=== PATIENT | male | born 1940 | race Caucasian/White ===

== ENCOUNTER 2019-03-08 12:54 | Emergency (ER) | payer MEDICARE, BC ==
[~2019-03-08] VITALS: Ht 175.3 cm; Wt 95.3 kg
[~2019-03-08 12:54] MED LIST: AMOXICILLIN 50500 MG PO; APAP500 PO; AUGMENTIN 875875 MG PO; CARVEDILOL12.5 MG PO; COUMADIN 2.5MG2.5 M1 PO; DIGOXIN125 MCG PO; DIPHENHIST50 MG PO; FISH OIL 1,001000 M2 PO; JALYN 0.5-0.41 EACH PO; LASIX 40 MG TAB40 M2 PO; LEVAQUIN 500 M500 M2 PO; LISINOPRIL5 MG PO; MACROBID 100 M100 M1 PO; MAGNESIUM250 MG PO; METFORMIN HCL500 MG PO; NEURONTIN 300300 M1 PO; NIACIN1000 MG PO; POTASSIUM20 PO; PRILOSEC 20 MG20 MG PO; ZOCOR20 MG PO
[2019-03-08 13:38] LABS: URINE CLARITY SL CLOUDY; URINE COLOR ORANGE
[2019-03-08 13:39] LABS: URINE GLUCOSE-RANDOM ND (Negative); URINE PROTEIN ND (Negative)
[2019-03-08 13:40] LABS: URINE BILIRUBIN ND (Negative); URINE BLOOD ND (Negative); URINE KETONES ND (Negative); URINE LEUKOCYTES-REFLEX ND (Negative); URINE NITRITE-REFLEX ND (Negative); URINE UROBILINOGEN ND E.U./dl (0.2-1.0)
[2019-03-08 13:43] LABS: SQUAMOUS 0-3 Few /LPF (0-3); URINE RBC 0-2 Rare /HPF (0-2); URINE WBC-REFLEX 0-5 Rare /HPF (0-5)
[2019-03-08 13:44] LABS: CASTS None Seen /LPF (None Seen); CRYSTALS None Seen /LPF (None Seen); MUCUS 0-3 Light strn/LPF (None Seen)
[2019-03-08 14:00] LABS: ABSOLUTE LYMPHOCYTES 0.7 thou/uL (0.8-5.3); ABSOLUTE MONOCYTES 0.5 thou/uL (0.0-1.2); ABSOLUTE NEUTROPHILS 4.3 thou/uL (1.6-8.1); BASOPHILS 0.6 %; EOSINOPHILS 0.7 %; HEMATOCRIT 38.9 % (42.0-52.0); HEMOGLOBIN 12.7 gm/dL (14.0-18.0); LYMPHOCYTES 11.9 %; MCH 26.7 pg (26.0-34.0); MCHC 32.6 g/dL (28.0-37.0); MCV 81.9 fL (80.0-100.0); MONOCYTES 9.7 %; MPV 7.7 fl. (7.2-11.1); NUCLEATED RBCS 0 /100WBC; PLATELET COUNT* 146 thou/uL (150-400); POLYS 77.1 %; RBC 4.76 mil/uL (4.50-6.00); WBC 5.6 thou/uL (4.0-11.0)
[2019-03-08 14:05] LABS: CREATININE 1.1 mg/dL (0.6-1.3); INR 2.7; POTASSIUM 4.6 mmol/L (3.5-5.1)
[2019-03-08 14:10] LABS: ALBUMIN 4.2 g/dL (3.4-5.0); TOTAL BILIRUBIN 0.7 mg/dL (<0.1-1.0); TOTAL PROTEIN 7.5 g/dL (6.4-8.2)
[2019-03-08] MEDS ORDERED: NORCO 5-325 TA1 EACH PO (15:15)
[2019-03-08 15:27] VITALS: BP 139/55
== END 2019-03-08 15:27 | disposition home or self-care (01) ==
LOC: M.ERS 12:54
PROVIDERS: Nurse Practitioner Family
DX: N30.10 Interstitial cystitis (chronic) without hematuria (principal); E11.9 Type 2 diabetes mellitus without complications; Z85.828 Personal history of other malignant neoplasm of skin; E78.00 Pure hypercholesterolemia, unspecified; I10 Essential (primary) hypertension; N40.0 Benign prostatic hyperplasia without lower urinary tract symptoms; Z90.49 Acquired absence of other specified parts of digestive tract; F17.210 Nicotine dependence, cigarettes, uncomplicated

== ENCOUNTER → 2020-06-30 | Outpatient (CLI) | payer MEDICARE, BC ==
[~2020-06-30] MED LIST changes: +NORCO 5-325 TA1 EACH PO
--- NOTE | 2020-06-30 14:54 | 2DMMODE ---
[place] [address] 2 D/M-MODE ECHOCARDIOGRAM Name: DELICIA LOPEZ Room: [facility]#: [id number] Admission: 06/30/20 Attend Phys: Oral Andres, Discharge: Date of : 36 Date of Service: 06/30/20 1454 Report #: [id number] THIS REPORT FOR: cc: Yola Lopez Anna S. DO Liston, Michael J. MD [facility] ~ APPROVED REPORT Study performed: 06/30/2020 12:58:25 EXAM: Comprehensive 2D, Doppler, and color-flow Echocardiogram Patient Location: Out-Patient BSA: 2.02 HR: 91 bpm BP: 120/70 mmHg Other Information Study Quality: Good Indications CAD Aortic valve replacement 2D Dimensions IVSd: 10.50 (7-11mm) LVOT Diam: 21.42 (18-24mm) LVDd: 49.77 mm PWd: 11.21 (7-11mm) Ascending Ao: 31.46 (22-36mm) LVDs: 39.86 (25-40mm) Aortic Root: 34.75 mm Volumes Left Atrial Volume (Systole) LA ESV Index: 39.90 mL/m2 Aortic Valve AoV Peak Shun.: 1.57 m/s AO Peak Gr.: 9.87 mmHg LVOT Max P.44 mmHg AO Mean Gr.: 5.77 mmHg LVOT Mean P.70 mmHg LVOT Max V: 0.60 m/s AO V2 VTI: 27.19 cm LVOT Mean V: 0.39 m/s FLORA (VTI): 1.66 cm2 LVOT V1 VTI: 12.50 [place] [address] 2 D/M-MODE ECHOCARDIOGRAM Name: DELICIA LOPEZ Room: [facility]#: [id number] Admission: 06/30/20 Attend Phys: Oral Andres, Discharge: Date of : 36 Date of Service: 06/30/20 1454 Report #: [id number] MV Decel. Time: 140.89 ms MV E Max Shun.: 0.86 m/s MV PHT: 40.86 ms MVA (PHT): 5.38 cm2 TDI E/Lateral E': 7.82 E/Medial E': 10.75 Medial E' Hsun.: 0.08 m/s Lateral E' Shun.: 0.11 m/s Pulmonary Valve PV Peak Shun.: 0.70 m/s PV Peak Gr.: 1.99 mmHg Tricuspid Valve RAP Estimate: 5.00 mmHg TR Peak Gr.: 25.69 mmHg RVSP: 30.69 mmHg PA Pressure: 30.69 mmHg Left Ventricle The left ventricle is normal size. There is mild inferior wall hypokinesis. There is normal left ventricular wall thickness. Left ventricular systolic function is mildly decreased. LVEF is 45-50%. This study is not technically sufficient to allow evaluation of the LV diastolic function due to atrial fibrillation. Right Ventricle The right ventricle is normal size. The right ventricular systolic function is normal. Atria Left atrium is moderately dilated. Right atrium is mildly dilated. Aortic Valve Mechanical aortic valve is present. Mild aortic regurgitation. There is no aortic valvular stenosis. Mitral Valve The mitral valve is normal in structure. Mild mitral regurgitation. No evidence of mitral valve stenosis. Tricuspid Valve The tricuspid valve is normal in structure. Mild tricuspid regurgitation[place] [address] 2 D/M-MODE ECHOCARDIOGRAM Name: DELICIA LOPEZ Room: [facility]#: [id number] Admission: 06/30/20 Attend Phys: Oral Andres, Discharge: Date of : 36 Date of Service: 06/30/20 1454 Report #: [id number] The pulmonary valve is normal in structure. Mild pulmonic regurgitation. Great Vessels The aortic root is normal in size. IVC is normal in size and collapses >50% with inspiration. Pericardium There is no pericardial effusion. <Conclusion> The left ventricle is normal size. There is normal left ventricular wall thickness. Left ventricular systolic function is mildly decreased. LVEF is 45-50%. There is mild inferior wall hypokinesis. Left atrium is moderately dilated. Right atrium is mildly dilated. Mechanical aortic valve is present. Mild aortic regurgitation. There is no aortic valvular stenosis. Mild mitral regurgitation. Mild tricuspid regurgitation. IVC is normal in size and collapses >50% with inspiration. <ELECTRONICALLY SIGNED> By: Oral Andres MD, FACC 06/30/20 1454 1454 1454 Oral Andres MD, FACC /INF
== END ==
LOC: M.CRD 06-08 07:48 → M.NUC 13:00 → M.CRD 13:00
PROVIDERS: ATTEND Internal Medicine Cardiovascular Disease
DX: I08.8 Other rheumatic multiple valve diseases (principal); I25.10 Atherosclerotic heart disease of native coronary artery without angina pectoris

== ENCOUNTER → 2020-07-15 | Outpatient (CLI) | payer MEDICARE, BC ==
[2020-07-15 09:21] LABS: CALCIUM 9.1 mg/dL (8.5-10.1); CREATININE 1.4 mg/dL (0.6-1.3); POTASSIUM 4.7 mmol/L (3.5-5.1)
== END ==
LOC: M.LAB 08:38
PROVIDERS: ATTEND Registered Nurse
DX: I25.5 Ischemic cardiomyopathy (principal)

== ENCOUNTER → 2020-11-13 | Outpatient (CLI) | payer MEDICARE, BC ==
[2020-11-13 13:59] LABS: CALCIUM 9.2 mg/dL (8.5-10.1); CREATININE 1.6 mg/dL (0.6-1.3); POTASSIUM 4.7 mmol/L (3.5-5.1)
== END ==
LOC: M.LAB 13:10
PROVIDERS: ATTEND Internal Medicine Cardiovascular Disease
DX: I48.21 Permanent atrial fibrillation (principal); I25.5 Ischemic cardiomyopathy; I50.22 Chronic systolic (congestive) heart failure; I25.10 Atherosclerotic heart disease of native coronary artery without angina pectoris

== ENCOUNTER 2020-12-24 14:10 | Inpatient (IN) | payer MEDICARE, BC ==
[~2020-12-24] VITALS: Ht 182.9 cm; Wt 85.6 kg
[2020-12-24] VITALS (14 sets, daily range): BP systolic 99–147; BP diastolic 39–87
--- NOTE | ~2020-12-24 | PROC ---
[address] [address] PROCEDURE REPORT Name: DELICIA LOPEZ Room: [address] ADM IN M.R.#: [id number] Admission: 12/24/20 Attend Phys: Abdiel Feliciano, Discharge: Date of : 38 Report #: [id number] THIS REPORT FOR: cc: Yola Lopez Anna S. DO ~ [facility],Medical Records Staff For GI report, please see the Provation report in Perceptive 7 content. By: [id number] Records Staff [facility] /JAYNA
[2020-12-24 14:36] LABS: URINE BILIRUBIN NEGATIVE (Negative); URINE BLOOD 2+ (Negative); URINE CLARITY CLEAR; URINE COLOR YELLOW; URINE GLUCOSE-RANDOM NEGATIVE (Negative); URINE KETONES NEGATIVE (Negative); URINE LEUKOCYTES-REFLEX 1+ (Negative); URINE NITRITE-REFLEX NEGATIVE (Negative); URINE PROTEIN NEGATIVE (Negative); URINE SPECIFIC GRAVITY 1.015 (1.005-1.030); URINE UROBILINOGEN 0.2 E.U./dl (0.2-1.0)
[2020-12-24 14:40] LABS: SQUAMOUS >10 Many /LPF (0-3)
[2020-12-24 14:41] LABS: CASTS None Seen /LPF (None Seen); CRYSTALS None Seen /LPF (None Seen); MUCUS None Seen strn/LPF (None Seen); URINE RBC 3-10 Few /HPF (0-2); URINE WBC-REFLEX 6-15 Few /HPF (0-5)
[2020-12-24 15:06] LABS: HEMATOCRIT 39.8 % (42.0-52.0); HEMOGLOBIN 13.1 gm/dL (14.0-18.0); MCH 32.1 pg (26.0-34.0); MCHC 32.8 g/dL (28.0-37.0); MCV 97.9 fL (80.0-100.0); MPV 7.9 fl. (7.2-11.1); NUCLEATED RBCS 0 /100WBC; PLATELET COUNT* 176 thou/uL (150-400); RBC 4.06 mil/uL (4.50-6.00); RDW-CV 15.4 % (10.5-14.5); WBC 17.1 thou/uL (4.0-11.0)
[2020-12-24 15:15] LABS: CALCIUM 9.6 mg/dL (8.5-10.1); CREATININE 1.2 mg/dL (0.6-1.3)
[2020-12-24 15:26] LABS: ALBUMIN 3.4 g/dL (3.4-5.0); TOTAL BILIRUBIN 4.9 mg/dL (<0.1-1.0); TOTAL PROTEIN 7.9 g/dL (6.4-8.2)
[2020-12-24 15:31] LABS: ABSOLUTE LYMPHOCYTES 0.3 thou/uL (0.8-5.3); ABSOLUTE MONOCYTES 0.2 thou/uL (0.0-1.2); ABSOLUTE NEUTROPHILS 16.6 thou/uL (1.6-8.1); HYPOCHROMASIA 1+; PLATELET ESTIMATE ADEQUATE
--- NOTE | 2020-12-24 15:35 | EKG ---
[place] [address] ELECTROCARDIOGRAM REPORT Name: DELICIA LOPEZ Room: 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[place] [facility] [place] [facility] [place] 1940 Requested By: Guero Simpson Order Number: [id number] MD: Ab Livingston Measurements Intervals [place] Rate: 132 P: 35 MA: 189 QRS: -83 QRSD: 166 T: 78 QT: 352 QTc: 522 Interpretive Statements atrial fibrillation artifact noted previous inferior infarction Multiform ventricular premature complexes Right bundle branch block Compared to ECG 07/03/2016 04:04:20 Ventricular premature complex(es) now present Right bundle-branch block now present Electronically Signed On 12-24-2020 15:35:37 CDT by Ab Livingston [email or web address] <ELECTRONICALLY SIGNED> By: Ab Livingston MD, [facility] 12/24/20 1535 1415 1415 Ab Livingston MD, [facility] /EPI
[2020-12-24 17:09] LABS: APTT 40.4 Seconds (25.0-31.3); INR 3.2; PROTIME 31.8 Seconds (9.20-11.50)
[2020-12-24 17:22] LABS: MAGNESIUM 2.1 mg/dL (1.8-2.4); PHOSPHORUS* 3.2 mg/dL (2.5-4.9)
[2020-12-25] VITALS (25 sets, daily range): BP systolic 90–120; BP diastolic 42–65
[2020-12-25 04:18] LABS: HEMATOCRIT 33.1 % (42.0-52.0); MCH 31.8 pg (26.0-34.0); MCHC 32.7 g/dL (28.0-37.0); MCV 97.3 fL (80.0-100.0); RBC 3.4 mil/uL (4.50-6.00); RDW-CV 15.3 % (10.5-14.5)
[2020-12-25 04:32] LABS: ALBUMIN 2.5 g/dL (3.4-5.0); CALCIUM 7.9 mg/dL (8.5-10.1); CREATININE 1.4 mg/dL (0.6-1.3); MAGNESIUM 1.7 mg/dL (1.8-2.4); POTASSIUM 3.7 mmol/L (3.5-5.1); TOTAL BILIRUBIN 4.7 mg/dL (<0.1-1.0)
[2020-12-25 04:35] LABS: HEMOGLOBIN 10.8 gm/dL (14.0-18.0)
[2020-12-25 07:47] LABS: PROTIME 46.5 Seconds (9.20-11.50)
[2020-12-25 08:11] LABS: INR 4.8
--- NOTE | 2020-12-25 16:39 | CON ---
[address] [address] CONSULTATION Name: JOHNDELICIA Charlie Room: [address] IN M.R.#: [id number] Admission: 12/24/20 Attend Phys: Abdiel Feliciano, Discharge: Date of : 38 Report #: [id number] THIS REPORT FOR: cc: Yola Lopez Anna S. DO ~ Irene Becerra MD DATE OF SERVICE: 12/25/2020 PRIMARY CARE PHYSICIAN: Yola Lopez DO Please note at the time of this dictation, the patient was seen and physically examined by myself. REASON FOR CONSULTATION: Abdominal pain and transaminitis. HISTORY OF PRESENT ILLNESS: This is an 80-year-old male who presented to the Emergency Room with abrupt onset of abdominal pain. The patient has had a previous cholecystectomy many years ago and he states it was related to stones. On his CT scan, it showed that he had a 5 mm distal hypodensity lesion in the CBD and head of the pancreas, likely choledocholithiasis. On admission, he had a temperature of 101.9, his heart rate was in the 130s, atrial fib, which is longstanding with him as well. He states he had upper and lower scopes many years ago. He cannot recall where those were done before. He has no issues with any nausea or vomiting at the present time or any issues with acid reflux. He states his bowels move daily, soft and formed with no evidence of any bright red blood or any black stools noted. ALLERGIES: No known drug allergies. MEDICATIONS: From home, he is on warfarin, acetaminophen, Lasix, carvedilol, potassium, magnesium, lisinopril, digoxin, metformin, fish oil, omeprazole 20 mg, Melissa, simvastatin, niacin, gabapentin, and Benadryl. PAST MEDICAL HISTORY: History of TIA back in 2006, diabetic, skin cancer of face in 2012. He has had UTIs, hypercholesterolemia, hypertension. He has issues with some chronic constipation, BPH. PAST SURGICAL HISTORY: Aortic valve replacement back in 1994, gallbladder removed in the . He has had some broken ribs. He has had a history of a heart catheterization and stress test. Recently, he broke his left wrist and is currently in an immobilizer for this at the present time. FAMILY HISTORY: [place] [address] CONSULTATION Name: DELICIA LOPEZ Room: [address]#: [id number] Admission: 12/24/20 Attend Phys: Abdiel Feliciano, Discharge: Date of : 38 Report #: [id number] SOCIAL HISTORY: He does smoke a small cigar once in a while. Otherwise, denies any illegal drug use or alcohol use. REVIEW OF SYSTEMS: Twelve-point review of systems is essentially negative except what is mentioned in the HPI. PHYSICAL EXAMINATION: VITAL SIGNS: Temperature 36.7, pulse 118, respirations 19, blood pressure 102/45. HEART: Irregular rate and rhythm. He is in the 120s-130s. ABDOMEN: Soft. Positive bowel sounds in all 4 quadrants with some tenderness noted in the epigastric to right upper quadrant pain. LUNGS: Diminished, but clear. LABORATORY DATA: Hemoglobin was 13.1 when he presented to the hospital, he is 10.8. White count was 17.1, he is now 19. Platelets 176 and he is down to 145. Troponin was elevated at 1. Lactic acid was 3.5. PT/INR on admission was 31.8 and INR was 3.2. He is now 46.5 and INR of 4.8, GFR is 49 with a BUN of 26 and creatinine of 1.4. Total bilirubin on admission was 4.9, he is down to 4.7, alkaline phosphatase 344, down to 220, ALT was 675, he is down to 432 and AST 764 and down to 346. His BNP was 5541. CT scan again showed a 5 mm distal CBD hypodensity lesion in the head of the pancreas, likely choledocholithiasis. IMPRESSION: 1. Abdominal pain, which has improved slightly. 2. Transaminitis. 3. Abnormal CT. 4. Anemia. 5. Cholangitis. 6. Hypercoagulopathy. 7. Anticoagulant therapy, warfarin for his AVR and atrial fibrillation. PLAN: 1. MRCP to further evaluate his CBD and head of the pancreas. 2. Levaquin 500 mg IV piggyback daily. 3. Labs; CBC, CMP, PT, INR and a CA-19-9 for tomorrow. 3. Hold all anticoagulants. 4. The patient will need an ERCP once his INR is below 1.5, he was given vitamin K already this a.m. 5. Further recommendations to be made after Dr. Becerra sees the patient later today. [address] [address] CONSULTATION Name: DELICIA LOPEZ Room: 004-P ADM IN M.R.#: [id number] Admission: 12/24/20 Attend Phys: Abdiel Feliciano, Discharge: Date of : 38 Report #: [id number] Thank you for allowing us to participate in this patient's care. Please do not hesitate to call with any questions in regard to this consult. <ELECTRONICALLY SIGNED> By: Irene Becerra MD 12/25/20 1639 0947 [id number] Becerra MD /nt
[2020-12-26] VITALS (19 sets, daily range): BP systolic 100–132; BP diastolic 47–76
[2020-12-26 04:48] LABS: ABSOLUTE LYMPHOCYTES 0.2 thou/uL (0.8-5.3); ABSOLUTE MONOCYTES 0.5 thou/uL (0.0-1.2); ABSOLUTE NEUTROPHILS 11.6 thou/uL (1.6-8.1); BASOPHILS 0.2 %; EOSINOPHILS 0.1 %; HEMATOCRIT 31.2 % (42.0-52.0); HEMOGLOBIN 10.4 gm/dL (14.0-18.0); LYMPHOCYTES 1.9 %; MCH 31.9 pg (26.0-34.0); MCHC 33.3 g/dL (28.0-37.0); MCV 95.9 fL (80.0-100.0); MONOCYTES 3.7 %; NUCLEATED RBCS 0 /100WBC; PLATELET COUNT* 137 thou/uL (150-400); POLYS 94.1 %; RBC 3.26 mil/uL (4.50-6.00); RDW-CV 15.4 % (10.5-14.5); WBC 12.3 thou/uL (4.0-11.0)
[2020-12-26 05:11] LABS: ALBUMIN 2.1 g/dL (3.4-5.0); CALCIUM 8.5 mg/dL (8.5-10.1); CREATININE 1.3 mg/dL (0.6-1.3); POTASSIUM 3.6 mmol/L (3.5-5.1); PROTIME 23.7 Seconds (9.20-11.50); TOTAL BILIRUBIN 3.2 mg/dL (<0.1-1.0); TOTAL PROTEIN 5.6 g/dL (6.4-8.2)
[2020-12-26 05:20] LABS: INR 2.3
[2020-12-26] MEDS ORDERED: ALLOPURINOL 30300 M1 PO (08:57)
[2020-12-26] MEDS ORDERED: NEURONTIN 300M300 M2 PO (08:59)
[2020-12-26] MEDS ORDERED: CEPHALEXIN 250250 M1 PO (09:00)
[2020-12-26] MEDS ORDERED: BUMETANIDE 1 MG1 M1 GT (09:02)
[2020-12-26] MEDS ORDERED: K-DUR 20 MEQ T20 MEQ PO (09:04)
[2020-12-26] MEDS ORDERED: ZOCOR 20 MG TAB20 M1 PO (09:05)
[2020-12-26 12:41] LABS: INR 1.9; PROTIME 19.6 Seconds (9.20-11.50)
[2020-12-27] VITALS (16 sets, daily range): BP systolic 101–134; BP diastolic 41–74
[2020-12-27 03:48] LABS: HEMATOCRIT 32.8 % (42.0-52.0); MCH 32.2 pg (26.0-34.0); MCHC 33.5 g/dL (28.0-37.0); MPV 8.3 fl. (7.2-11.1); RBC 3.41 mil/uL (4.50-6.00); RDW-CV 15.2 % (10.5-14.5); WBC 10.2 thou/uL (4.0-11.0)
[2020-12-27 04:00] LABS: INR 1.3; PROTIME 13.9 Seconds (9.20-11.50)
[2020-12-27 04:09] LABS: ALBUMIN 2.1 g/dL (3.4-5.0); CALCIUM 8.3 mg/dL (8.5-10.1); CREATININE 1.2 mg/dL (0.6-1.3); MAGNESIUM 2.1 mg/dL (1.8-2.4); POTASSIUM 3.8 mmol/L (3.5-5.1); TOTAL PROTEIN 5.9 g/dL (6.4-8.2)
--- NOTE | 2020-12-27 11:18 | CON ---
[address] [address] CONSULTATION Name: LOPEZDELICIA Charlie Room: [address] IN M.R.#: [id number] Admission: 12/24/20 Attend Phys: Abdiel Feliciano, Discharge: Date of : 38 Report #: [id number] THIS REPORT FOR: cc: Yola Lopez Anna S. DO ~ Ab Livingston MD [facility] DATE OF SERVICE: 12/25/2020 CARDIOLOGY CONSULTATION HISTORY OF PRESENT ILLNESS: The patient is an 80-year-old white male who I was asked to see in the hospital today after he was noted to be in atrial fibrillation. HISTORY OF PRESENT ILLNESS: He has an extensive past medical history. He had previous aortic valve replacement for aortic stenosis when he was 53 years old in [place], [place]. He has been on warfarin since that time. He apparently also had a MUSE graft placed to the LAD. Previous echocardiogram suggested an ejection fraction of 45%. He does have chronic edema. He actually just saw Dr. Andres a week ago. After his heart surgery, he developed atrial fibrillation and has never been anticoagulated. He has been on rate control only. He does have his INR checked frequently. When Dr. Andres saw him last week, he made no changes in his medications. However, his blood pressure had been low and he was told to hold his lisinopril. He is on Bumex for the edema. The patient was brought to the Emergency Room yesterday afternoon by ambulance. Apparently, according to , he was confused. He noticed some weakness, was diaphoretic. He had a temperature. He was tachycardic. The patient has a history of urinary hesitancy and does perform self-catheterizations. He notes some abdominal pain. He was not very talkative at the time. He was brought to [place] and admitted for further evaluation and treatment. He actually denies any recent chest pain, shortness of breath, palpitations, fever, sweats. He has had some cough. PAST MEDICAL HISTORY: Otherwise, he has had previous cholecystectomy, skin cancer removal, hypertension, hyperlipidemia. CURRENT MEDICATIONS: Include Lasix, carvedilol, digoxin, metformin, warfarin, simvastatin, niacin, and Neurontin. ALLERGIES: He has no known drug allergies. FAMILY HISTORY: His father had heart disease. SOCIAL HISTORY: He is . He and his [place] [address] CONSULTATION Name: DELICIA LOPEZ Room: [address]#: [id number] Admission: 12/24/20 Attend Phys: Abdiel Feliciano, Discharge: Date of : 38 Report #: [id number] smokes half pack of cigarettes a day. No alcohol abuse. REVIEW OF SYSTEMS: He has had no history of stroke, asthma, liver disease, kidney disease, cancer, chronic skin condition. PHYSICAL EXAMINATION: GENERAL: Revealed an elderly, frail-appearing male, lying in bed. He appeared in no distress. VITAL SIGNS: He had a blood pressure of 100/68, pulse is 110 and irregular. He was afebrile. HEENT: He was anicteric. Conjunctivae pink. Mucous membranes are moist. NECK: Veins do not appear distended. CHEST: Clear to auscultation. CARDIOVASCULAR: Irregular, tachycardia, grade 2 systolic ejection murmurs. ABDOMEN: Soft. EXTREMITIES: He had pitting edema of the ankles. No dorsalis pedis pulse could be palpated. SKIN: Cool and dry. NEUROLOGIC: He is very slow moving. RADIOLOGICAL DATA: His ECG on admission showed atrial fibrillation with rapid ventricular response rate, left axis deviation and a right bundle-branch block. His echocardiogram was done last June that showed evidence of the metallic aortic valve with a peak gradient of only 10 mmHg. Ejection fraction estimated at 45%. The left atrium and right atrium were dilated. There was only mild prosthetic insufficiency noted. His chest x-ray last night, he had a portable chest x-ray that showed atelectasis, cardiomegaly. He had a CT scan of the abdomen that showed atelectasis, cardiomegaly. There was plaque in the aorta. LABORATORY DATA: Sodium 137, creatinine 1.4. His SGOT is 346, bilirubin is 4.7, alkaline phosphate 220, SGPT 432. Albumin is only 2.5. His lactic acid 3.5. Troponin 1.0. BNP 5541. INR is 4.8. White blood cell count 19.0, hemoglobin 10.8. IMPRESSION AND RECOMMENDATIONS: 1. Previous aortic valve replacement. It appears to be functioning normally. 2. Previous bypass surgery. No recent angina. 3. Hypertension. The patient has been on beta-mary kate. Currently, he is off lisinopril because of low blood pressure. 4. Hyperlipidemia. The patient is on a statin drug. 5. Chronic edema. Suspect venous insufficiency. The patient does take diuretics. 6. Tobacco abuse. 7[place] [address] CONSULTATION Name: DELICIA LOPEZ Room: 004-P [facility] IN M.Jd.#: [id number] Admission: 12/24/20 Attend Phys: Abdiel Feliciano, Discharge: Date of : 38 Report #: [id number] 8. Elevated liver function studies. 9. Over-anticoagulation. I would hold warfarin until his INR is between 2 and 3. 10. Anemia. No history of bleeding. <ELECTRONICALLY SIGNED> By: Ab Livingston MD, FACC 12/27/20 1118 0840 [id number] Livingston MD, FACC /nt
[2020-12-27 13:39] LABS: URINE BLOOD 1+ (Negative); URINE CLARITY CLEAR; URINE COLOR YELLOW; URINE GLUCOSE-RANDOM TRACE (Negative); URINE KETONES TRACE (Negative); URINE LEUKOCYTES-REFLEX NEGATIVE (Negative); URINE NITRITE-REFLEX NEGATIVE (Negative); URINE PROTEIN 1+ (Negative); URINE UROBILINOGEN 0.2 E.U./dl (0.2-1.0)
[2020-12-27 13:41] LABS: ICTOTEST (BILI CONFIRMATORY) Positive (Negative); URINE BILIRUBIN 2+ (Negative)
[2020-12-27 13:46] LABS: SQUAMOUS 0-3 Few /LPF (0-3)
[2020-12-27 13:47] LABS: BACTERIA-REFLEX 1-9 Few /HPF (None Seen); COARSE GRANULAR CASTS 0-3 Few /LPF (None Seen); CRYSTALS None Seen /LPF (None Seen); HYALINE CASTS 0-3 Few /LPF (None Seen); MUCUS 0-3 Light strn/LPF (None Seen); URINE RBC 3-10 Few /HPF (0-2); URINE WBC-REFLEX 0-5 Rare /HPF (0-5)
[2020-12-27] MEDS ORDERED: CARVEDILOL3.125 MG PO (21:07)
[2020-12-28 04:00] VITALS: BP 105/39
[2020-12-28] MEDS ORDERED: MELATONIN3 M1 PO (04:58)
[2020-12-28 05:10] LABS: HEMATOCRIT 31.8 % (42.0-52.0); HEMOGLOBIN 10.8 gm/dL (14.0-18.0); MCH 32.3 pg (26.0-34.0); MCHC 33.9 g/dL (28.0-37.0); MCV 95.5 fL (80.0-100.0); MPV 8.6 fl. (7.2-11.1); RBC 3.33 mil/uL (4.50-6.00); RDW-CV 15.2 % (10.5-14.5)
[2020-12-28 05:23] LABS: CALCIUM 8.1 mg/dL (8.5-10.1); CREATININE 1.2 mg/dL (0.6-1.3); INR 1.2; MAGNESIUM 2.3 mg/dL (1.8-2.4); PROTIME 12.4 Seconds (9.20-11.50); TOTAL BILIRUBIN 2.5 mg/dL (<0.1-1.0); TOTAL PROTEIN 5.4 g/dL (6.4-8.2)
[2020-12-28 05:41] LABS: ALBUMIN 1.9 g/dL (3.4-5.0); DIRECT BILIRUBIN 1.1 mg/dL (<0.1-0.3); TOTAL BILIRUBIN 2.7 mg/dL (<0.1-1.0); TOTAL PROTEIN 5.5 g/dL (6.4-8.2)
[2020-12-28 08:00] VITALS: BP 98/57
[2020-12-28 12:00] VITALS: BP 103/43
[2020-12-28 15:52] VITALS: BP 125/55
[2020-12-28 20:11] VITALS: BP 97/52
[2020-12-29] VITALS: BP 100/63
[2020-12-29 04:02] VITALS: BP 124/59
[2020-12-29 04:30] LABS: ALBUMIN 2.1 g/dL (3.4-5.0); CALCIUM 8.2 mg/dL (8.5-10.1); CREATININE 1.2 mg/dL (0.6-1.3); POTASSIUM 3.1 mmol/L (3.5-5.1); TOTAL BILIRUBIN 2.4 mg/dL (<0.1-1.0); TOTAL PROTEIN 5.2 g/dL (6.4-8.2)
[2020-12-29 04:38] LABS: INR 1.4; PROTIME 14.3 Seconds (9.20-11.50)
[2020-12-29 04:51] LABS: HEMATOCRIT 31.1 % (42.0-52.0); HEMOGLOBIN 10.3 gm/dL (14.0-18.0); MCH 31.7 pg (26.0-34.0); MCHC 33.1 g/dL (28.0-37.0); MCV 95.7 fL (80.0-100.0); MPV 8.4 fl. (7.2-11.1); RBC 3.25 mil/uL (4.50-6.00); RDW-CV 15.2 % (10.5-14.5); WBC 6.5 thou/uL (4.0-11.0)
[2020-12-29 07:30] VITALS: BP 110/59
[2020-12-29] MEDS ORDERED: METRONIDAZOLE500 M4 PO (08:28)
[2020-12-29] MEDS ORDERED: LEVOFLOXACIN500 MG PO (08:28)
[2020-12-29 12:00] VITALS: BP 143/76
[2020-12-29 13:28] VITALS: BP 143/76
== END 2020-12-29 15:59 | disposition home health service (06) | DRG 871 ==
LOC: M.ERS 14:10 → M.ICU 16:05 → M.TBA-ER 16:05 → M.ICU 18:56 → M.2W 12-27 18:30
PROVIDERS: Emergency Medicine Emergency Medical Services; Family Medicine; Internal Medicine; Internal Medicine Gastroenterology; Nurse Practitioner Adult Health; ADMIT Family Medicine; ATTEND Family Medicine
PROC: 30233M1 Transfusion of Nonautologous Plasma Cryoprecipitate into Peripheral Vein, Percutaneous Approach (ICD-10-PCS; principal; 2020-12-26)
PROC: 0FC98ZZ Extirpation of Matter from Common Bile Duct, Via Natural or Artificial Opening Endoscopic (ICD-10-PCS; 2020-12-27)
PROC: BF101ZZ Fluoroscopy of Bile Ducts using Low Osmolar Contrast (ICD-10-PCS; 2020-12-27)
DX: A41.52 Sepsis due to Pseudomonas (principal); N17.0 Acute kidney failure with tubular necrosis; G93.41 Metabolic encephalopathy; E43 Unspecified severe protein-calorie malnutrition; I21.A1 Myocardial infarction type 2; N39.0 Urinary tract infection, site not specified; I48.20 Chronic atrial fibrillation, unspecified; D68.69 Other thrombophilia; K80.31 Calculus of bile duct with cholangitis, unspecified, with obstruction; R65.20 Severe sepsis without septic shock; E78.00 Pure hypercholesterolemia, unspecified; I10 Essential (primary) hypertension; E11.9 Type 2 diabetes mellitus without complications; E78.5 Hyperlipidemia, unspecified; D64.9 Anemia, unspecified; R31.9 Hematuria, unspecified; Z20.822 Contact with and (suspected) exposure to COVID-19; K59.09 Other constipation; N40.1 Benign prostatic hyperplasia with lower urinary tract symptoms; I25.9 Chronic ischemic heart disease, unspecified; Z68.25 Body mass index [BMI] 25.0-25.9, adult; Z95.4 Presence of other heart-valve replacement; Z90.49 Acquired absence of other specified parts of digestive tract; Z86.73 Personal history of transient ischemic attack (TIA), and cerebral infarction without residual deficits; Z85.828 Personal history of other malignant neoplasm of skin; Z79.84 Long term (current) use of oral hypoglycemic drugs; Z79.01 Long term (current) use of anticoagulants; Z79.899 Other long term (current) drug therapy; Z95.1 Presence of aortocoronary bypass graft

== ENCOUNTER → 2021-01-01 | Outpatient (CLI) | payer MEDICARE, BC ==
[~2021-01-01] MED LIST changes: +ALLOPURINOL 30300 M1 PO; +BUMETANIDE 1 MG1 M1 GT; +CARVEDILOL3.125 MG PO; +CEPHALEXIN 250250 M1 PO; +K-DUR 20 MEQ T20 MEQ PO; +LEVOFLOXACIN500 MG PO; +MELATONIN3 M1 PO; +METRONIDAZOLE500 M4 PO; +NEURONTIN 300M300 M2 PO; +ZOCOR 20 MG TAB20 M1 PO
== END ==
LOC: M.WC 08:49
PROVIDERS: ATTEND Family Medicine
DX: S51.011A Laceration without foreign body of right elbow, initial encounter (principal); S01.302A Unspecified open wound of left ear, initial encounter; R21 Rash and other nonspecific skin eruption; H26.9 Unspecified cataract; I25.10 Atherosclerotic heart disease of native coronary artery without angina pectoris; I89.0 Lymphedema, not elsewhere classified; K64.8 Other hemorrhoids; G47.8 Other sleep disorders; F17.200 Nicotine dependence, unspecified, uncomplicated; Z86.73 Personal history of transient ischemic attack (TIA), and cerebral infarction without residual deficits; Z85.828 Personal history of other malignant neoplasm of skin; Z95.1 Presence of aortocoronary bypass graft; Z79.899 Other long term (current) drug therapy; Z90.49 Acquired absence of other specified parts of digestive tract; Z95.4 Presence of other heart-valve replacement; W01.0XXA Fall on same level from slipping, tripping and stumbling without subsequent striking against object, initial encounter; Y93.89 Activity, other specified; Y92.89 Other specified places as the place of occurrence of the external cause; Y99.8 Other external cause status

== ENCOUNTER → 2021-01-08 | Outpatient (CLI) | payer MEDICARE, BC ==
[2021-01-08 10:56] LABS: INR 2.6; PROTIME 26.4 Seconds (9.20-11.50)
== END ==
LOC: M.WC 09:21
PROVIDERS: ATTEND Family Medicine
DX: S51.011D Laceration without foreign body of right elbow, subsequent encounter (principal); S41.101D Unspecified open wound of right upper arm, subsequent encounter; S01.302D Unspecified open wound of left ear, subsequent encounter; R21 Rash and other nonspecific skin eruption; I89.0 Lymphedema, not elsewhere classified; H26.9 Unspecified cataract; I25.10 Atherosclerotic heart disease of native coronary artery without angina pectoris; Z86.73 Personal history of transient ischemic attack (TIA), and cerebral infarction without residual deficits; W19.XXXD Unspecified fall, subsequent encounter

== ENCOUNTER → 2021-01-15 | Outpatient (CLI) | payer MEDICARE, BC | LOC: M.WC 09:18 | PROVIDERS: ATTEND Family Medicine | DX: S51.011D Laceration without foreign body of right elbow, subsequent encounter (principal); S41.101D Unspecified open wound of right upper arm, subsequent encounter; S01.302D Unspecified open wound of left ear, subsequent encounter; I89.0 Lymphedema, not elsewhere classified; G47.8 Other sleep disorders; H26.9 Unspecified cataract; I25.10 Atherosclerotic heart disease of native coronary artery without angina pectoris; R21 Rash and other nonspecific skin eruption; F17.200 Nicotine dependence, unspecified, uncomplicated; Z86.73 Personal history of transient ischemic attack (TIA), and cerebral infarction without residual deficits; Z79.899 Other long term (current) drug therapy; W01.0XXD Fall on same level from slipping, tripping and stumbling without subsequent striking against object, subsequent encounter ==

== ENCOUNTER → 2021-01-29 | Outpatient (CLI) | payer MEDICARE, BC | LOC: M.WC 09:11 | PROVIDERS: ATTEND Family Medicine | DX: S01.302D Unspecified open wound of left ear, subsequent encounter (principal); H26.9 Unspecified cataract; I25.10 Atherosclerotic heart disease of native coronary artery without angina pectoris; I89.0 Lymphedema, not elsewhere classified; F17.200 Nicotine dependence, unspecified, uncomplicated; Z95.4 Presence of other heart-valve replacement; Z86.73 Personal history of transient ischemic attack (TIA), and cerebral infarction without residual deficits; Z79.01 Long term (current) use of anticoagulants; Z79.899 Other long term (current) drug therapy; X58.XXXD Exposure to other specified factors, subsequent encounter ==

== ENCOUNTER → 2021-03-30 | Outpatient (CLI) | payer MEDICARE, BC | LOC: M.ULTRA 09:53 | PROVIDERS: ATTEND Registered Nurse | DX: M25.461 Effusion, right knee (principal); R60.0 Localized edema ==

== ENCOUNTER → 2021-06-29 | Outpatient (CLI) | payer MEDICARE, BC ==
[2021-06-29 15:26] LABS: ALBUMIN 3.8 g/dL (3.4-5.0); CALCIUM 8.6 mg/dL (8.5-10.1); CREATININE 1.5 mg/dL (0.6-1.3); POTASSIUM 4.6 mmol/L (3.5-5.1); TOTAL BILIRUBIN 0.6 mg/dL (<0.1-1.0); TOTAL PROTEIN 7.7 g/dL (6.4-8.2)
== END ==
LOC: M.LAB 14:40
PROVIDERS: ATTEND Registered Nurse
DX: I50.32 Chronic diastolic (congestive) heart failure (principal)

== ENCOUNTER → 2021-07-13 | Outpatient (CLI) | payer MEDICARE, BC ==
[~2021-07-13] MED LIST changes: -BUMETANIDE 1 MG1 M1 GT; +BUMETANIDE 1 MG1 M1 PO; -COUMADIN 2.5MG2.5 M1 PO; +FIBERCON625 M1 PO; +JANTOVEN2.5 MG PO; +MIRALAX119 GM PO; +PHENAZOPYRIDINE PO; +PROSCAR 5MG TABL5 M1 PO; +SIMETHICON CHEW80 M1 PO; +STOOL SOFTENER100 MG PO; +TIZANIDINE HCL4 M1 PO; +VITAMIN C500 M1 PO; +VITAMIN D350 MCG PO
[2021-07-13 13:46] LABS: CREATININE 1.6 mg/dL (0.6-1.3); POTASSIUM 3.9 mmol/L (3.5-5.1)
== END ==
LOC: M.LAB 13:11
PROVIDERS: ATTEND Registered Nurse
DX: I11.0 Hypertensive heart disease with heart failure (principal); I50.32 Chronic diastolic (congestive) heart failure; I48.21 Permanent atrial fibrillation; R60.0 Localized edema

== ENCOUNTER 2021-07-14 13:55 | Inpatient (IN) | payer MEDICARE, BC ==
[~2021-07-14] VITALS: Ht 175.3 cm; Wt 97.2 kg
[~2021-07-14 13:55] MED LIST changes: -FIBERCON625 M1 PO; -MIRALAX119 GM PO; -PHENAZOPYRIDINE PO; -PROSCAR 5MG TABL5 M1 PO; -SIMETHICON CHEW80 M1 PO; -STOOL SOFTENER100 MG PO; -TIZANIDINE HCL4 M1 PO; -VITAMIN C500 M1 PO; -VITAMIN D350 MCG PO
[2021-07-14 14:11] VITALS: BP 124/58
[2021-07-14 14:45] VITALS: BP 124/58
[2021-07-14] MEDS ORDERED: FIBERCON625 M1 PO (15:17)
[2021-07-14] MEDS ORDERED: STOOL SOFTENER100 MG PO (15:17)
[2021-07-14] MEDS ORDERED: PHENAZOPYRIDINE PO (15:18)
[2021-07-14] MEDS ORDERED: PROSCAR 5MG TABL5 M1 PO (15:18)
[2021-07-14] MEDS ORDERED: VITAMIN C500 M1 PO (15:18)
[2021-07-14] MEDS ORDERED: TIZANIDINE HCL4 M1 PO (15:19)
[2021-07-14] MEDS ORDERED: VITAMIN D350 MCG PO (15:19)
[2021-07-14] MEDS ORDERED: MIRALAX119 GM PO (15:19)
[2021-07-14] MEDS ORDERED: SIMETHICON CHEW80 M1 PO (15:20)
[2021-07-14 15:38] LABS: ABSOLUTE EOSINOPHILS 0.2 thou/uL (0.0-0.7); ABSOLUTE LYMPHOCYTES 0.5 thou/uL (0.8-5.3); ABSOLUTE MONOCYTES 0.6 thou/uL (0.0-1.2); ABSOLUTE NEUTROPHILS 4.2 thou/uL (1.6-8.1); BASOPHILS 0.8 %; EOSINOPHILS 3.8 %; HEMOGLOBIN 10.2 gm/dL (14.0-18.0); LYMPHOCYTES 8.4 %; MCH 28.6 pg (26.0-34.0); MCHC 32.8 g/dL (28.0-37.0); MCV 87.1 fL (80.0-100.0); MONOCYTES 10.8 %; MPV 7.1 fl. (7.2-11.1); NUCLEATED RBCS 0 /100WBC; PLATELET COUNT* 152 thou/uL (150-400); POLYS 76.2 %; RBC 3.55 mil/uL (4.50-6.00); RDW-CV 16.9 % (10.5-14.5); WBC 5.5 thou/uL (4.0-11.0)
[2021-07-14 15:44] LABS: ANION GAP < 0 mmol/L (7-16); BUN 43 mg/dL (7-18); CALCIUM 9.1 mg/dL (8.5-10.1); CHLORIDE 93 mmol/L (98-107); CO2 33 mmol/L (21-32); CREATININE 1.7 mg/dL (0.6-1.3); GLUCOSE 120 mg/dL (70-99); POTASSIUM 3.5 mmol/L (3.5-5.1); SODIUM 121 mmol/L (136-145)
[2021-07-14 16:00] LABS: ALBUMIN 4.1 g/dL (3.4-5.0); ALKALINE PHOSPHATASE 91 U/L (46-116); NT-PRO BRAIN NAT PEPTIDE 9577 pg/mL (<300); SGOT 47 U/L (15-37); SGPT 30 U/L (30-65); TOTAL BILIRUBIN 0.9 mg/dL (<0.1-1.0); TOTAL PROTEIN 8.1 g/dL (6.4-8.2)
[2021-07-14 16:45] LABS: INR 2.9; PROTIME 28.6 Seconds (9.20-11.50)
[2021-07-15] VITALS (7 sets, daily range): BP systolic 103–135; BP diastolic 46–62
[2021-07-15 07:27] LABS: ABSOLUTE BASOPHILS 0.1 thou/uL (0.0-0.2); ABSOLUTE EOSINOPHILS 0.2 thou/uL (0.0-0.7); ABSOLUTE LYMPHOCYTES 0.5 thou/uL (0.8-5.3); ABSOLUTE MONOCYTES 0.7 thou/uL (0.0-1.2); ABSOLUTE NEUTROPHILS 5.5 thou/uL (1.6-8.1); BASOPHILS 0.8 %; EOSINOPHILS 3.5 %; HEMATOCRIT 32.2 % (42.0-52.0); HEMOGLOBIN 10.5 gm/dL (14.0-18.0); LYMPHOCYTES 7.6 %; MCH 28.3 pg (26.0-34.0); MCHC 32.7 g/dL (28.0-37.0); MCV 86.6 fL (80.0-100.0); MPV 6.9 fl. (7.2-11.1); NUCLEATED RBCS 0 /100WBC; PLATELET COUNT* 149 thou/uL (150-400); POLYS 78.1 %; RBC 3.72 mil/uL (4.50-6.00); RDW-CV 16.9 % (10.5-14.5); WBC 7.1 thou/uL (4.0-11.0)
[2021-07-15 07:55] LABS: ALKALINE PHOSPHATASE 91 U/L (46-116); ANION GAP 6 mmol/L (7-16); BUN 40 mg/dL (7-18); CALCIUM 9.2 mg/dL (8.5-10.1); CHLORIDE 91 mmol/L (98-107); CHOLESTEROL 85 mg/dL (<200); CO2 32 mmol/L (21-32); CREATININE 1.5 mg/dL (0.6-1.3); GLUCOSE 118 mg/dL (70-99); HDL CHOLESTEROL 41 mg/dL (>40); LDL CHOLESTEROL 35 mg/dL (<100); MAGNESIUM 1.8 mg/dL (1.8-2.4); POTASSIUM 3.5 mmol/L (3.5-5.1); SGOT 45 U/L (15-37); SGPT 27 U/L (30-65); TC:HDL 2.1 Ratio (Not establshd); TOTAL BILIRUBIN 1.2 mg/dL (<0.1-1.0); TOTAL PROTEIN 7.8 g/dL (6.4-8.2); TRIGLYCERIDE 48 mg/dL (<150); VLDL 10 mg/dL (<40)
[2021-07-15 07:56] LABS: SODIUM 129 mmol/L (136-145)
[2021-07-15 08:18] LABS: INR 2.5; PROTIME 25.1 Seconds (9.20-11.50)
[2021-07-15 08:59] LABS: SERUM ASSESSMENT Clear
[2021-07-15 10:57] LABS: BE 6.4 mmol/L (-2 to +3); PCO2 35.1 mmHg (35.0-45.0); PO2 82.8 mmHg (75.0-100.0); pH 7.536 (7.340-7.450)
--- NOTE | 2021-07-15 11:18 | EKG ---
[place] [address] ELECTROCARDIOGRAM REPORT Name: DEILCIA LOPEZ Room: [place] [address] ADM IN [facility]#: [id number] Admission: 07/14/21 Attend Phys: Rayo Brown Discharge: Date of : 36 Date of Service: 07/14/21 1533 Report #: [id number] THIS REPORT FOR: //name// [facility] ED Test Date: 2021-07-14 Test Time: 15:33:03 Pat Name: DELICIA LOPEZ Department: Room: [facility] Gender: M Obstetrics Nurse Practitioner: : 1940 Requested By: Hyun Paez Order Number: [id number] MD: Oral Andres Measurements Intervals [place] Rate: 92 P: [place]: QRS: -82 QRSD: 177 T: 85 QT: 445 QTc: 551 Interpretive Statements Atrial fibrillation Right bundle branch block Compared to ECG 12/24/2020 14:15:20 Myocardial infarct finding no longer present Ventricular premature complex(es) no longer present Electronically Signed On 07-15-2021 11:18:21 CDT by Oral Andres [email or web address] <ELECTRONICALLY SIGNED> By: Oral Andres MD, FACC 07/15/21 1118 1533 1533 Oral Andres MD, FACC /EPI
--- NOTE | 2021-07-15 11:23 | EKG ---
[place] [address] ELECTROCARDIOGRAM REPORT Name: DELICIA LOPEZ Room: [place] [address] ADM IN [facility].#: [id number] Admission: 07/14/21 Attend Phys: Rayo Brown Discharge: Date of : 36 Date of Service: 07/15/21 1025 Report #: [id number] THIS REPORT FOR: //name// [facility] ED Test Date: 2021-07-15 Test Time: 10:25:26 Pat Name: DELICIA LOPEZ Department: Room: [place] [address] Gender: M Scheduler: CHANG : 1940 Requested By: Rayo Brown Order Number: [id number] Anaya MD: Oral Andres Measurements Intervals [place] Rate: 100 P: [place]: QRS: -86 QRSD: 163 T: 85 QT: 403 QTc: 520 Interpretive Statements Atrial fibrillation Right bundle branch block PVC Compared to ECG 07/14/2021 15:33:03 No significant changes Electronically Signed On 07-15-2021 11:23:25 CDT by Oral Andres [email or web address] <ELECTRONICALLY SIGNED> By: Oral Andres MD, FACC 07/15/21 1123 1025 1025 Oral Andres MD, FAC /EPI
[2021-07-15 11:40] LABS: URINE BILIRUBIN NEGATIVE (Negative); URINE BLOOD 3+ (Negative); URINE CLARITY CLEAR; URINE COLOR YELLOW; URINE GLUCOSE-RANDOM NEGATIVE (Negative); URINE KETONES NEGATIVE (Negative); URINE LEUKOCYTES 1+ (Negative); URINE NITRITE NEGATIVE (Negative); URINE PROTEIN NEGATIVE (Negative); URINE UROBILINOGEN 0.2 E.U./dl (0.2-1.0)
[2021-07-15 11:54] LABS: BACTERIA None Seen /HPF (None Seen); CASTS None Seen /LPF (None Seen); CRYSTALS None Seen /LPF (None Seen); MUCUS None Seen strn/LPF (None Seen); SQUAMOUS NONE SEEN /LPF (0-3); URINE RBC >20 Many /HPF (0-2); URINE WBC 0-5 Rare /HPF (0-5)
--- NOTE | 2021-07-15 13:24 | 2DMMODE ---
[place] [address] 2 D/M-MODE ECHOCARDIOGRAM Name: DELICIA LOPEZ Room: [place] [address] ADM IN [facility]#: [id number] Admission: 07/14/21 Attend Phys: Rayo Brown Discharge: Date of : 36 Date of Service: 07/15/21 1324 Report #: [id number] THIS REPORT FOR: cc: Yola Lopez Anna S. DO Liston, Michael J. MD [facility] ~ APPROVED REPORT Study performed: 07/15/2021 12:04:32 EXAM: Comprehensive 2D, Doppler, and color-flow Echocardiogram Patient Location: In-Patient Room #: ER Status: routine BSA: 2.16 HR: 97 bpm BP: 135/50 mmHg Rhythm: Atrial Fibrillation Indications Congestive Heart Failure Atrial Fibrillation 2D Dimensions IVSd: 10.93 (7-11mm) LVOT Diam: 22.64 (18-24mm) LVDd: 58.98 mm PWd: 11.21 (7-11mm) Ascending Ao: 33.91 (22-36mm) LVDs: 48.17 (25-40mm) Aortic Root: 37.12 mm Volumes Left Atrial Volume (Systole) LA ESV Index: 60.50 mL/m2 Aortic Valve AoV Peak Shun.: 1.69 m/s AO Peak Gr.: 11.48 mmHg LVOT Max P.42 mmHg AO Mean Gr.: 7.05 mmHg LVOT Mean P.77 mmHg LVOT Max V: 0.60 m/s AO V2 VTI: 24.14 cm LVOT Mean V: 0.40 m/s FLORA (VTI): 1.76 cm2 LVOT V1 VTI: 10.53 cm TDI Lateral E' Shun.: 0.11 m/[place] [address] 2 D/M-MODE ECHOCARDIOGRAM Name: DELICIA LOPEZ Room: [place] [address] ADM IN .R.#: [id number] Admission: 07/14/21 Attend Phys: Rayo Brown Discharge: Date of : 36 Date of Service: 07/15/21 1324 Report #: [id number] Pulmonary Valve PV Peak Shun.: 0.59 m/s PV Peak Gr.: 1.38 mmHg Tricuspid Valve RAP Estimate: 5.00 mmHg TR Peak Gr.: 34.23 mmHg RVSP: 39.00 mmHg PA Pressure: 39.00 mmHg Left Ventricle Left ventricle is dilated. There is global hypokinesis of the left ventricle. There is normal left ventricular wall thickness. Left ventricular systolic function is severely decreased. LVEF is 25-30%. This study is not technically sufficient to allow evaluation of the LV diastolic function due to atrial fibrillation. Right Ventricle Right ventricle is dilated. The right ventricular systolic function is normal. Atria Left atrium is moderately dilated. Right atrium is moderately dilated. Aortic Valve Mechanical aortic valve is present. Trace aortic regurgitation. There is no aortic valvular stenosis. Mitral Valve The mitral valve is normal in structure. Mild mitral regurgitation. No evidence of mitral valve stenosis. Tricuspid Valve The tricuspid valve is normal in structure. Mild tricuspid regurgitation. The RVSP is 40-45 mmHg. Pulmonic Valve The pulmonary valve is normal in structure. Mild pulmonic regurgitation. Great Vessels The aortic root is normal in size. IVC is normal in size and collapses >50% with inspiration. Pericardium There [place] [address] 2 D/M-MODE ECHOCARDIOGRAM Name: DELICIA LOPEZ Room: [address] IN [facility].#: [id number] Admission: 07/14/21 Attend Phys: Rayo Brown Discharge: Date of : 36 Date of Service: 07/15/21 1324 Report #: [id number] <Conclusion> Left ventricle is dilated. There is normal left ventricular wall thickness. Left ventricle is dilated. There is normal left ventricular wall thickness. Left ventricular systolic function is severely decreased. LVEF is 25-30%. There is global hypokinesis of the left ventricle. Right ventricle is dilated. Left atrium is moderately dilated. Right atrium is moderately dilated. Mechanical aortic valve is present. Trace aortic regurgitation. Mild tricuspid regurgitation. The RVSP is 40-45 mmHg. IVC is normal in size and collapses >50% with inspiration. <ELECTRONICALLY SIGNED> By: Oral Andres MD, FACC 07/15/21 1324 1324 132 Oral Andres MD, FACC /INF
[2021-07-16] VITALS: BP 105/58
[2021-07-16 04:00] VITALS: BP 117/54
[2021-07-16 08:00] VITALS: BP 105/58
[2021-07-16 12:00] VITALS: BP 108/55
[2021-07-16 15:40] VITALS: BP 115/60
[2021-07-16 19:25] VITALS: BP 116/50
[2021-07-17] VITALS: BP 105/58
[2021-07-17 04:38] LABS: PROTIME 20.1 Seconds (9.20-11.50)
[2021-07-17 04:46] LABS: CREATININE 1.8 mg/dL (0.6-1.3); POTASSIUM 3.6 mmol/L (3.5-5.1)
[2021-07-17 04:50] VITALS: BP 124/69
[2021-07-17 08:41] VITALS: BP 122/58
[2021-07-17 11:58] VITALS: BP 103/50
[2021-07-17] MEDS ORDERED: BUMETANIDE 1 MG1 M1 PO (12:34)
== END 2021-07-17 16:44 | disposition home or self-care (01) | DRG 291 ==
LOC: M.ERS 13:55 → M.TBA-ER 16:31 → M.ORTHSURG 07-15 14:07
PROVIDERS: Nurse Practitioner Family; Registered Nurse; ADMIT Internal Medicine; ATTEND Internal Medicine
DX: I11.0 Hypertensive heart disease with heart failure (principal); A41.9 Sepsis, unspecified organism; I50.43 Acute on chronic combined systolic (congestive) and diastolic (congestive) heart failure; N17.0 Acute kidney failure with tubular necrosis; E87.1 Hypo-osmolality and hyponatremia; I48.20 Chronic atrial fibrillation, unspecified; E11.9 Type 2 diabetes mellitus without complications; E78.00 Pure hypercholesterolemia, unspecified; K59.09 Other constipation; N40.0 Benign prostatic hyperplasia without lower urinary tract symptoms; E78.5 Hyperlipidemia, unspecified; I25.5 Ischemic cardiomyopathy; I25.10 Atherosclerotic heart disease of native coronary artery without angina pectoris; G89.29 Other chronic pain; M54.9 Dorsalgia, unspecified; C44.209 Unspecified malignant neoplasm of skin of left ear and external auricular canal; N40.1 Benign prostatic hyperplasia with lower urinary tract symptoms; R33.8 Other retention of urine; Z20.822 Contact with and (suspected) exposure to COVID-19; Z82.49 Family history of ischemic heart disease and other diseases of the circulatory system; Z95.2 Presence of prosthetic heart valve; Z87.891 Personal history of nicotine dependence; Z23 Encounter for immunization; Z86.73 Personal history of transient ischemic attack (TIA), and cerebral infarction without residual deficits

== ENCOUNTER → 2021-08-03 | Outpatient (CLI) | payer MEDICARE, BC ==
[~2021-08-03] MED LIST changes: +FIBERCON625 M1 PO; +MIRALAX119 GM PO; +PHENAZOPYRIDINE PO; +PROSCAR 5MG TABL5 M1 PO; +SIMETHICON CHEW80 M1 PO; +STOOL SOFTENER100 MG PO; +TIZANIDINE HCL4 M1 PO; +VITAMIN C500 M1 PO; +VITAMIN D350 MCG PO
[2021-08-03 10:31] LABS: PROTIME 38.7 Seconds (9.20-11.50)
== END ==
LOC: M.LAB 09:49
PROVIDERS: ATTEND Internal Medicine Cardiovascular Disease
DX: I48.21 Permanent atrial fibrillation (principal); Z79.01 Long term (current) use of anticoagulants; Z75.2 Other waiting period for investigation and treatment